=== PATIENT | male | born 1985 | race Caucasian/White ===

== ENCOUNTER 2019-10-16 23:58 | Emergency (ER) | payer SELFPAY ==
[~2019-10-16] VITALS: Ht 175.3 cm; Wt 97.5 kg
[2019-10-17 00:10] VITALS: Ht 175.3 cm; Wt 97.5 kg
[2019-10-17 00:52] LABS: BASOPHIL % 0.5 % (0-2); PLATELET COUNT 399 x10^3mcL (130-400); RED CELL DISTRIBUTION WIDTH 12.7 % (11.5-14.5)
[2019-10-17 01:00] LABS: CALCIUM 9.5 mg/dL (8.5-10.1); CARBON DIOXIDE 28.8 mmol/L (21-32); CHLORIDE SERUM 100 mmol/L (98-107); CREATININE SERUM 0.8 mg/dL (0.7-1.3); GFR1 > 60 mL/min; GLUCOSE SERUM 103 mg/dL (74-106); POTASSIUM SERUM 4.1 mmol/L (3.5-5.1); SODIUM SERUM 138 mmol/L (136-145)
[2019-10-17 01:05] LABS: ALBUMIN 4.2 g/dL (3.4-5.0); ALKALINE PHOSPHATASE 90 U/L (46-116); ALT/SGPT 67 U/L (16-63); AST/SGOT 27 U/L (15-37)
[2019-10-17 01:08] LABS: TOTAL PROTEIN, SERUM 8.7 g/dL (6.4-8.2)
[2019-10-17 02:03] VITALS: BP 142/92
== END 2019-10-17 02:03 | disposition home or self-care (01) ==
LOC: ED 23:58
PROVIDERS: Emergency Medicine
DX: K21.9 Gastro-esophageal reflux disease without esophagitis (principal)
CPT/HCPCS: 36415; J1885